=== PATIENT | female | born 1990 | race Caucasian/White ===

== ENCOUNTER 2020-05-29 02:00 | Emergency (ER) | payer OTHER ==
[~2020-05-29] VITALS: Ht 157.5 cm; Wt 49.4 kg
[2020-05-29 02:12] VITALS: BP 132/86
[2020-05-29] MEDS ORDERED: WATER ONE (02:19)
[2020-05-29] MEDS ORDERED: XYLOCAINE 1%-EPI 1:100,000 ONE (02:19)
[2020-05-29] MEDS ORDERED: ADACEL VIAL IM ONE ×2 (02:57→03:00)
[2020-05-29] MEDS ORDERED: TRIPLE ANTIBIOTIC OINTMENT TP ONE (02:57)
--- NOTE | 2020-05-29 03:07 | NUR ---
[employer] [employer] CALLED DISPATCH TO NOTIFY THEM OF DOG BITE. STATES WILL SEND SOMEONE RIGHT AWAY.
--- NOTE | 2020-05-29 03:07 | ER.PDOC ---
General Chief Complaint: Animal Bite Stated Complaint: DOG BITE Time seen by MD: 02:03 Source: patient, family Exam Limitations: no limitations History of Present Illness Initial Comments This 29-year-old white female comes in with complaint of her dog bit her in the lip. Patient actually stated that she was trying to get in the dog's face and seeing how much agitation it would take to make the dog break. She stated she was doing this to see how much the dog would take from her child.The dog snapped at her and caught her upper lip carrying a flap of the right upper lip that is right just past the midline underneath the frenulum of her nose down through the vermilion border and into the inside portion of the lip on the mucosal aspe ct.This flap measured 2 cm in length from end to end.This occurred just prior to coming in.Patient also sustained 1 small puncture wound to the lower lip but it does not need any suturing. Onset: just prior to arrival Where: home Animal: dog Animal Appearance: appeared well Animal Immunizations: UTD Animal Disposition: Animal Known, Animal Control Notified Context of Attack: "provoked " attack, approached animal, entered animal's domain Severity of Injury: bitten Injury Location: face, mouth Allergies: Coded Allergies: Sulfa (Sulfonamide Antibiotics) (Verified Allergy, Unknown, 05/29/20) Home Meds No Active Prescriptions or Reported Meds Past Medical History Medical History: other Surgical History: no surgical history Family History Significant Family History: no pertinent family hx Social History Smoking: non-smoker Alcohol Use: occassionally Drug Use: none Review of Systems Skin: see HPI All Other Systems: Reviewed and Negative Physical Exam General Appearance: alert, no distress Skin: intact (Skin is intact except for the lip laceration) Neuro/Vascular/Tendon: no vascular compromise, sensation nml, oriented x3, nml ROM, CN's nml as tested Psych: mood/affect nml HEENT: atraumatic, PERRL, eye lids/conjun nml, ENT nml external inspect., other (Normal except for the lip laceration) Neck: uninjured, nml inspection Resp/CVS: chest non-tender, breath sounds nml, heart sounds nml, reg. rate & rhythm Abdomen: nml inspection, non-tender Extremities: nml inspection, no infection, ROM nml ED LACERATION WOUND REPAIR Wound Location & Length (Requi: This wound was closed with a total of eleven 6- 0 suturesI gave that #2 the Wound Length (cm): 2 Wound cleaned: hibiclens (Wound was irrigated with normal saline. A copious amount of saline was used. I did not use Hibiclens or Betadine.) Distal NVT: neuro intact, vasc intact Anesthesia type: regional Wound's Depth, Shape: into muscle, flap, irregular, through and through Wound Explored: Wound Repaired With: sutures Suture Size/Type: 6:0, nylon Suture Style: interupted Layer Closure?: No Retention sutures placed: No Sterile Dressing Applied?: Yes Sling Applied?: No Results/Orders Results/Orders Orders - PILO DOE MD Neomycin/Bacitracin/Polymyxinb (Triple A (05/29/20 02:57) Diph,Pertuss(Acell),Tet Vac/Pf (Adacel V (05/29/20 02:57) Vital Signs Date Time Temp Pulse Resp B/P (MAP) Pulse Ox O2 Delivery O2 Flow Rate FiO2 05/29/20 02:12 98.3 73 16 132/86 (101) 96 Room Air 05/29/20 02:12 98.3 73 16 05/29/20 02:12 98.3 73 16 96 ER DEPART Departure Time of Disposition: 03:05 Disposition: 01 HOME, SELF-CARE Impression: Primary Impression: Dog bite of vermilion of upper lip Condition: Stable Referrals: ROSEMARIE GAYTAN MD (PCP) PRIMARY CARE PROVIDER Scripts No Active Prescriptions or Reported Meds Comments autmentin 875mg bid x 5 d Duration or Time Spent with Pa: 60m PILO DOE MD May 29, 2020 03:07
--- NOTE | 2020-05-29 03:08 | NUR ---
SUTURES 11 SUTURES PLACED IN UPPER LIP.
[2020-05-29] MEDS ORDERED: AUGMENTIN 875-125 TABLET ONE (03:09)
[2020-05-29] MEDS ORDERED: AUGMENTIN 875-125 TABLET PO STA (03:10)
[2020-05-29 03:26] VITALS: BP 112/53
== END 2020-05-29 03:20 | disposition home or self-care (01) ==
LOC: ER 02:00
DX: S01.511A Laceration without foreign body of lip, initial encounter (principal); Z88.2 Allergy status to sulfonamides; W54.0XXA Bitten by dog, initial encounter; Y93.89 Activity, other specified; Y92.89 Other specified places as the place of occurrence of the external cause; Y99.8 Other external cause status
CPT/HCPCS: 12002; 12013; 90471; 90715; 99283

== ENCOUNTER → 2020-09-06 | Outpatient (CLI) | payer OTHER | END | disposition home or self-care (01) | LOC: LAB 15:24 | PROVIDERS: ATTEND Internal Medicine Rheumatology | DX: M45.9 Ankylosing spondylitis of unspecified sites in spine (principal) | CPT/HCPCS: 36415; 85651; 86140 ==

== ENCOUNTER → 2021-03-11 | Outpatient (CLI) | payer OTHER ==
--- NOTE | 2021-03-11 15:52 | DIREP ---
PROCEDURE:US KIDNEYS-BILAT COMPARISON:None. INDICATIONS:LOWER ACTH, ELEVATED CORTISOL, LOW B/P, FATIQUE, MALAISE TECHNIQUE:Ultrasound examination was performed of the kidneys and bladder. FINDINGS: RIGHT KIDNEY:Normal in size and echogenicity, measuring 10.9 cm in length. No solid mass or hydronephrosis. LEFT KIDNEY:Normal in size and echogenicity, measuring 10.7 cm in length. No solid mass or hydronephrosis BLADDER:The bladder is distended but otherwise unremarkable on prevoid images. No bladder wall thickening or intraluminal debris. Bilateral ureteral jets are demonstrated. Prevoid bladder volume measures approximately 826 mL. Postvoid bladder volume measures approximately 19 mL. OTHER:Negative. CONCLUSION: 1. Normal bilateral kidneys. 2. The urinary bladder is distended on prevoid images but otherwise unremarkable. No significant postvoid residual. Dictated by: Tyler Ray MD on 03/11/2021 at 03:46 PM
== END | disposition home or self-care (01) ==
LOC: RAD 11:10
PROVIDERS: ATTEND Nurse Practitioner Family
DX: N32.89 Other specified disorders of bladder (principal)
CPT/HCPCS: 76770

== ENCOUNTER → 2021-04-13 | Outpatient (CLI) | payer OTHER ==
--- NOTE | 2021-04-13 14:33 | DIREP ---
PROCEDURE:CT ABD/PELVIS WITH CONTRAST TECHNIQUE:No oral contrast was given. Following the intravenous administration of contrast material, venous phase cuts were obtained through the abdomen and pelvis. The images were viewed at lung, liver, bone, and soft tissue settings. Sagittal and coronal reconstructions are provided. COMPARISON:[facility], [place], US KIDNEYS-BILAT, 03/11/2021, 12:46 PM. INDICATIONS:LOW ACTH, HIGH CORTISOL, MALAISE, FATIGUE FINDINGS: LOWER CHEST:Minimal dependent atelectasis in the posterior lower lobes. The lung bases are otherwise clear. LIVER:Minimal fatty infiltration along falciform ligament. Otherwise unremarkable. No suspicious hepatic lesion. BILIARY:Normal. PANCREAS:Normal. SPLEEN:Normal size. No focal splenic lesion. URINARY TRACT:Normal. Symmetric renal enhancement. No hydronephrosis. The bladder is unremarkable. ADRENALS:Normal. No adrenal thickening or visible adrenal nodule. AORTA/VASCULAR:Normal. No significant atherosclerotic plaque. No aneurysm. RETROPERITONEUM:Normal. No enlarged lymph nodes. BOWEL/MESENTERY:Somewhat limited evaluation due to lack of oral contrast. No obstructive or inflammatory changes. Small to moderate amount of stool within the cecum and transverse colon. A normal appendix is seen within the right lower quadrant. No free fluid, free air, or adenopathy. ABDOMINAL WALL:Unremarkable. PELVIS:T-shaped IUD is present within the uterus. The uterus and adnexa are otherwise unremarkable. No pelvic free fluid or adenopathy. BONES:No acute abnormality or suspicious osseous lesion. OTHER:Normal. CONCLUSION: 1. No acute abnormality within the abdomen or pelvis. 2. The adrenal glands are unremarkable. No adrenal thickening or visible adrenal nodule. 3. Small to moderate amount of stool within the cecum and transverse colon. 4. IUD. 5. Additional findings, as above. Dictated by: Tyler Ray MD on 04/13/2021 at 02:26 PM
== END | disposition home or self-care (01) ==
LOC: RAD 08:22
PROVIDERS: ATTEND Nurse Practitioner Family
DX: R94.7 Abnormal results of other endocrine function studies (principal); E27.40 Unspecified adrenocortical insufficiency; R53.81 Other malaise; R53.83 Other fatigue
CPT/HCPCS: 74177; Q9965

== ENCOUNTER → 2021-05-02 | Outpatient (CLI) | payer OTHER | END | disposition home or self-care (01) | LOC: NPLAB 11:50 | PROVIDERS: ATTEND Nurse Practitioner Family | DX: U07.1 COVID-19 (principal) | CPT/HCPCS: 87633 ==